=== PATIENT | male | born 1990 | race Hispanic/Latino ===

== ENCOUNTER → 2021-10-09 | Outpatient (CLI) | payer OTHER | END | disposition home or self-care (01) | LOC: RAH 12:07 | PROVIDERS: ATTEND Internal Medicine | DX: R91.8 Other nonspecific abnormal finding of lung field (principal); R04.2 Hemoptysis; R05.3 Chronic cough; Z00.01 Encounter for general adult medical examination with abnormal findings; Z86.11 Personal history of tuberculosis | CPT/HCPCS: 71250 ==